=== PATIENT | female | born 1985 | race Caucasian/White ===

== ENCOUNTER 2022-10-28 15:28 | Outpatient (RCR) | payer OTHER, SELFPAY | END 2023-01-26 23:59 | disposition home or self-care (01) | LOC: ANHLAB 15:28 | PROVIDERS: PCP Otolaryngology; Visit Provider Obstetrics & Gynecology | DX: O36.0130 Maternal care for anti-D [Rh] antibodies, third trimester, not applicable or unspecified (principal); Z3A.00 Weeks of gestation of pregnancy not specified | CPT/HCPCS: 36415; 85461; 86850; 86900; 86901 ==

== ENCOUNTER → 2023-01-03 07:54 | Outpatient (CLI) | payer MEDICAID, SELFPAY ==
--- NOTE | ~2023-01-03 | US_ITS ---
EXAMINATION: US abdomen complete DATE: 01/03/2023 08:17 INDICATION: Abdominal pain. TECHNIQUE: Multiple grayscale and Doppler ultrasound images of the abdomen were obtained. COMPARISON: CT abdomen and pelvis 02/23/2018 FINDINGS: Abdominal aorta is normal in caliber. Inferior vena cava is normal. The visualized portions of the head, body, and tail of the pancreas are normal. The liver is normal without focal lesion. Th ere is normal flow in main portal vein. The gallbladder is normal in size. No gallstones or gallbladd er wall thickening. There is no sonographic Mckeon sign. The common duct is normal and measures 2 mm. The kidneys are normal in size. The spleen is normal in size. IMPRESSION: 1. Normal complete abdomen ultrasound. Reviewed, dictated and finalized at location A.
== END ==
PROVIDERS: Visit Provider Advanced Practice Midwife
DX: R10.9 Unspecified abdominal pain (principal)
CPT/HCPCS: 76700

== ENCOUNTER 2023-01-31 08:45 | Outpatient (RCR) | payer MEDICAID, SELFPAY ==
--- NOTE | 2022-11-28 13:35 | PTOPEVAL1 ---
Assessment and note entered by Luli Hinojosa, PT Evaluation Information Assessment Status Evaluation Diagnosis sciatica with Onset Nov 13, 2022 Subjective Information gradual increase in back pain; is 10 weeks - first ; recently completed moving; chronic pain, intermittent due to scoliosis; no trauma or injury to back; have been trying to do some stretches; Reported Pain Level Pain Score Self Report Additional Pain Score Comments pain range of 5-10/10; sharp pain at times, aching constant; pull and tight in low back and R buttock; intermittent radicular into R LE to toes increase pain with movement of her body; decrease pain with stretching, change position; tylenol barely touches the pain; heat pad not really help educated on use of ice PRN; reported tolerances: sit 5-10 min; standing/ walking 5-10 min; Oswestry self assessment functional score of 62% limitation in activity level; Assessment PT Clinical Summary Tish has the diagnosis of lumbago, sciatica R with . Radicular pain is intermittent, to Foot/toes. She has a history of scoliosis and intermittent back pain. Self assessment Oswestry score of 62% limitation in activity level, with decreased sit, stand, walk and sleep tolerances. And all movements hurt her back. With the evaluation: standing trunk extension more pain than flexion; poor standing position of her thoracic-lumbar spine due to scoliosis; tenderness over R > L sacrum and lumbar areas; the flexibility of her trunk and hips are WNL, but increase pain. Skilled PT services are indicated for manual therapy and taping to decrease pain; therapeutic exercises to stretch and strengthen her trunk and stabilize sacrum; education for home exercises and pain control. Plan of Care Interventions Hot Pack/Cold Pack,Manual Therapy,Patient/ Caregiver Education,Therapeutic Activities, Therapeutic Exercise,Other Other Interventions taping PT Services Indicated Yes Treatment Frequency and 2x/wk for 4 weeks Duration These treatments will address the objective and functional deficits as def
--- NOTE | 2022-11-29 14:35 | PCPTNOTE ---
Patient called & cancelled scheduled appointment this date due to not feeling well.
--- NOTE | 2022-12-27 13:19 | PTOPPROG ---
Assessment and note entered by Luli Hinojosa, PT Evaluation Information Assessment Status Evaluation Diagnosis sciatica with Onset Nov 13, 2022 Subjective Information Tish reports: back is better, but not good; both hips still hurting, problems standing and putting leg into pants leg; therapy is helping- not sure what, but feels better after have therapy concerned about more issues as the progresses; have a sacral belt, but not tried it yet;feel like need more therapy; pain range in past week, 4-10/10; sharp, aching, both hips R>L- anterior, lateral and posterior hips and alot into lower back; no pain into R lower leg- hip only; walking/standing tolerance reported 20 min; decrease pain with position change; with walking R hip gives her trouble; Assessment PT Clinical Summary Tish has received 9 PT sessions. Compared to the initial evaluation: pain rating was the same at worst rating 10/10 and 1 less at low rating from 5 to 4/10; increased reported walking/standing tolerance from 10 to 20 minutes; no longer has pain with standing trunk extension, supine R and L hip flexion, IR or ER motions; hamstring stretch R and L does not increase back pain, but have tightness at 60'; Oswestry self assessment improved by 2%; She has been educated on posture/position and HEP. The goals were partially achieved. Continue PT treatment. Plan of Care Interventions Hot Pack/Cold Pack,Manual Therapy,Neuro Re- education,Therapeutic Activities,Therapeutic Exercise,Other Other Interventions taping PT Services Indicated Yes Treatment Frequency and 2x/wk for 5 weeks Duration These treatments will address the objective and functional deficits as defined above. The patient will be advanced safely and appropriately in order for the patient to progress towards his/her prior level of function. Additional exercises will be introduced and as well as a comprehensive home exercise program upon discharge, if needed, ?to ensure carryover of functional gains achieved in the clinic. This treatment plan has been reviewed and agreement upon by the patient.
--- NOTE | 2023-01-31 09:31 | PTOPDC ---
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 Compared to the last reevaluation, she has improved with: pain rating from 4-10/10 to 0-4/10; walking/stand tolerance from 20 minutes to 30-60 minutes; hamstring length with SLR R and L increased by 10'; increase strength of trunk and hips; Oswestry self assessment functional score from 60% to 30% limitation in activity level. continues to have tenderness & spasm over R mid- ITB She is indep with her home exercises. The goals were partially achieved. Discharge PT services, she is to continue with her home exercises. Plan of Care PT Services Indicated No
== END 2023-02-11 12:38 | disposition home or self-care (01) ==
LOC: ANHPT 08:45
PROVIDERS: PCP Otolaryngology; Visit Provider Advanced Practice Midwife
DX: M54.30 Sciatica, unspecified side (principal)
CPT/HCPCS: 97110; 97112; 97140; 97161; 97530

== ENCOUNTER 2023-03-13 20:38 | Emergency (ER) | payer MEDICAID, SELFPAY ==
[2023-03-13 20:40] VITALS: BP 101/52; PULSE 75; RESP 16; TEMP 36.9; O2SAT 100
--- NOTE | 2023-03-13 20:47 | ECG_ITS ---
Measurements Intervals [place] Rate: 76 P: 54 VA: 117 QRS: 51 QRSD: 69 T: 44 QT: 356 QTc: 400 Interpretive Statements SINUS RHYTHM WITH SHORT VA INTERVAL NORMAL ELECTROCARDIOGRAM NO PREVIOUS ECG AVAILABLE FOR COMPARISON Electronically Signed On 03-14-2023 13:20:44 CDT by [place] M.D.
[2023-03-13 21:06] LABS: Basophils Percent Auto 0.4 % (0.2-1.2); Eosinophils Absolute Auto 0.2 K/mm3 (0-0.3); Eosinophils Percent Auto 2.1 % (0-4.4); Hematocrit 33.2 % (37.0-47.0); Hemoglobin 11.2 g/dL (12.0-15.0); Immature Granulocyte Percent A 0.9 % (0-0.5); Lymphocytes Absolute Auto 1.95 K/mm3 (0.9-3.2); Lymphocytes Percent Auto 17.5 % (18.3-44.2); Mean Corpuscular HGB Conc 33.7 g/dl (32-36); Mean Corpuscular Hemoglobin 32.4 pg (26-34); Mean Platelet Volume 10.7 fl (7.4-10.4); Monocytes Absolute Auto 1.3 K/mm3 (0.1-0.6); Monocytes Percent Auto 11.6 % (2.6-8.5); Neutrophils Absolute Auto 7.6 K/mm3 (1.3-6.7); Neutrophils Percent Auto 67.5 % (45.5-73.1); Platelet Count Result 358 k/mm3 (150-375); Red Blood Count 3.46 M/mm3 (4.2-5.4); Red Cell Distribution Width 14.4 % (11.5-14.5); White Blood Count 11.2 K/mm3 (4.5-10.0)
[2023-03-13 21:15] LABS: Alanine Aminotransferase 17 U/L (6-35); Albumin Level 3.7 g/dL (3.5-5.1); Alkaline Phosphatase 66 U/L (38-126); Anion Gap 5 mmol/L (8-16); Aspartate Amino Transferase 23 U/L (14-36); Bilirubin,Total 0.2 mg/dL (0.2-1.3); Blood Urea Nitrogen 10 mg/dL (7-17); Calcium 8.2 mg/dL (8.4-10.2); Carbon Dioxide 23 mmol/L (22-30); Chloride 105 mmol/L (98-107); Estimated CRCL calculation 148 ml/min; Estimated Glomerular Filt Rate > 60; Glucose 88 mg/dL (65-110); Potassium 3.9 mmol/L (3.4-5.0); Sodium 133 mmol/L (137-145)
[2023-03-13 23:41] VITALS: BP 94/64; PULSE 76; RESP 16; O2SAT 100
[2023-03-13 23:46] VITALS: BP 93/69; PULSE 83; RESP 10; O2SAT 100
[2023-03-14] VITALS (12 sets, daily range): BP systolic 88–109; BP diastolic 60–84; PULSE 71–110; RESP 15–20; O2SAT 97–100
--- NOTE | 2023-03-14 00:42 | PC.NURSE ---
Pt is 26 weeks . Healthy so far. Pt reports one episode of vomiting last week. She reports intermittent dizziness over the past week but has gotten much worse last night. Dizziness seems to be random per pt but notices it's worse when she lays flat. Pt also c/o worsening acid reflux. She is alert and oriented x4. Speech is clear, pupils PEARRL. Gait is steady. She denies any pain.
[2023-03-14 01:17] LABS: Appearance Urine Cloudy (Clear); Bacteria Urine 3+ /hpf; Bilirubin Urine Negative (Negative); Blood Urine Negative (Negative); Color Urine Yellow (Yellow); Glucose Urine UA Negative (Negative); Ketones Urine Negative (Negative); Leukocyte Esterase Ur Trace LEU/UL (Negative); Need Manual Microscopic Reviewed; Nitrate Urine Negative (Negative); Protein Urine Negative (Negative); RBC Urine 0-2 /hpf (0-2); Specific Grav Ur 1.015 (1.001-1.035); Squamous Epithelial Cell Urine Occasional /hpf (Few); Urobilinogen Urine 0.2 mg/dL (<2.0); WBC Urine 21-50 /hpf; pH Urine 6.5 (5.0-9.0)
[2023-03-14] MEDS: SODIUM CHLORIDE 0.9% IV 1,000 ML 999 ML IV CONT (01:18)
[2023-03-14 01:20] LABS: Add Urine Microscopic? YES
[2023-03-14] MEDS: diphenhydrAMINE HCl INJ 50 MG/ML VIAL 25 MG IV PUSH (01:24)
[2023-03-14] MEDS: FAMOTIDINE 20 MG/2 ML VIAL IV PUSH (01:24)
[2023-03-14] MEDS: METOCLOPRAMIDE HCL INJ 10 MG/2 ML VIAL IV PUSH (01:24)
[2023-03-14 01:47] LABS: Magnesium 1.9 mg/dL (1.6-2.3)
[2023-03-14] MEDS: MAGNESIUM SULF 1 GM/D5W 100 ML 1 GM/100 ML BAG IVPB (02:20)
--- NOTE | 2023-03-14 03:16 | ED.GENADULT ---
HPI - General Adult General Chief complaint: Dizziness Stated complaint: dizzy Time Seen by Provider: 03/14/23 00:11 History of Present Illness HPI narrative: Patient 37-year-old female who presents the emergency department with chief complaint of lightheadedness patient reports she is currently and has noticed that she has felt lightheaded has a headache and has felt generally unwell today. The patient reports that she has had no chest pain or shortness of breath reports that she had no vaginal bleeding or vaginal discharge. Related Data Allergies Allergy/AdvReac Type Severity Reaction Status Date / Time CILANTRO Allergy Intermediate ITCHY Uncoded 12/29/15 00:36 THROAT/COUGH Review of Systems Review of Systems: A 10 system review of systems was completed on the patient and is negative except for what is stated in the HPI. Nursing and ancillary documentation was reviewed. Exam Narrative: GENERAL: Well-appearing, well-nourished, and in no acute distress. HEAD: Normocephalic, atraumatic. EYES: PERRLA and EOMI. ENT: Nares clear, no rhinorrhea or epistaxis. Mucous membranes moist. NECK: Supple. CHEST: Clear to auscultation. No respiratory distress. HEART: Regular rate and rhythm. No murmur heard. Normal peripheral pulses. ABDOMEN: Soft, nontender, nondistended, normal active bowel sounds. EXTREMITIES: Normal range of motion. No edema. SKIN: Warm, dry, no rash. NEURO: No focal deficits. Alert and oriented x3. PSYCH: Normal mood and affect. Course Vital Signs Vital signs: Vital Signs Temperature 36.9 C 03/13/23 20:40 Pulse Rate 75 03/13/23 20:40 Respiratory Rate 16 03/13/23 20:40 Blood Pressure 101/52 L 03/13/23 20:40 Pulse Oximetry 100 03/13/23 20:40 Oxygen Delivery Room Air 03/13/23 20:40 Temperature 36.9 C 03/13/23 20:40 Pulse Rate 75 03/14/23 02:01 Respiratory Rate 16 03/14/23 02:01 Blood Pressure 93/70 L 03/14/23 02:01 Pulse Oximetry 100 03/14/23 02:01 Oxygen Delivery Room Air 03/13/23 20:40 Medical Decision Making MDM Narrative Medical decision making narrative: Differential diagnosis includes dehydration, gastroesophageal reflux disease UTI, electrolyte abnormality, Oratory studies were obtained on the patient which showed a normal CBC with a white count of 11.2 and hemoglobin 11.2 electrolytes showed a sodium of 133 potassium of 3.9 creatinine 0.4 magnesium was 1.9. Liver enzymes are within normal limits urinalysis showed trace leukocyte esterase 21-50 white blood cells and 3+ bacteria Patient was started on Keflex for the UTI and also will be given a prescription for Pepcid. The patient received IV fluids antiemetics Pepcid and received a dose of magnesium in the emergency department Patient is follow-up with her primary OB in the next week Vital Signs Vital Signs: Vital Signs Temperature 36.9 C 03/13/23 20:40 Pulse Rate 75 03/13/23 20:40 Respiratory Rate 16 03/13/23 20:40 Blood Pressure 101/52 L 03/13/23 20:40 Pulse Oximetry 100 03/13/23 20:40 Oxygen Delivery Room Air 03/13/23 20:40 Temperature 36.9 C 03/13/23 20:40 Pulse Rate 75 03/14/23 02:01 Respiratory Rate 16 03/14/23 02:01 Blood Pressure 93/70 L 03/14/23 02:01 Pulse Oximetry 100 03/14/23 02:01 Oxygen Delivery Room Air 03/13/23 20:40 Lab Data 03/13/23 20:56 03/13/23 20:56 Labs: Lab Results 03/13/23 03/14/23 Range/Units 20:56 00:48 WBC 11.2 H (4.5-10.0) K/mm3 RBC 3.46 L (4.2-5.4) M/mm3 Hgb 11.2 L (12.0-15.0) g/dL Hct 33.2 L (37.0-47.0) % MCV 96.0 (80-100) fl MCH 32.4 (26-34) pg MCHC 33.7 (32-36) g/dl RDW 14.4 (11.5-14.5) % Plt Count 358 (150-375) k/mm3 MPV 10.7 H (7.4-10.4) fl Immature Gran % (Auto) 0.9 H (0-0.5) % Neut % (Auto) 67.5 (45.5-73.1) % Lymph % (Auto) 17.5 L (18.3-44.2) % [place] % (Auto) 11.6 H (2.6-8.5) % Eos
== END 2023-03-14 03:34 | disposition home or self-care (01) ==
PROVIDERS: Emergency Provider Emergency Medicine
DX: O23.42 Unspecified infection of urinary tract in pregnancy, second trimester (principal); N39.0 Urinary tract infection, site not specified; O99.282 Endocrine, nutritional and metabolic diseases complicating pregnancy, second trimester; E83.42 Hypomagnesemia; O99.612 Diseases of the digestive system complicating pregnancy, second trimester; K21.9 Gastro-esophageal reflux disease without esophagitis; O26.892 Other specified pregnancy related conditions, second trimester; R42 Dizziness and giddiness; Z3A.26 26 weeks gestation of pregnancy
CPT/HCPCS: 36415; 80053; 81001; 81025; 83735; 85025; 87086; 93005; 96361; 96365; 96375; 99284; J1200; J2765; J3475; J7030

== ENCOUNTER 2023-04-11 22:15 | Observation (INO) | payer OTHER, SELFPAY ==
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
[2023-04-11 22:40] VITALS: BP 103/68; PULSE 79
[2023-04-11 23:27] VITALS: BMI 22.9
--- NOTE | 2023-04-11 23:27 | OBADM ---
This patient, Tish Avalos, admitted to the OB room OB Post 116 for observation. Patient/family oriented to hospital policies and general routines including ID bracelet, bed and alarms, visiting hours, pain management, procedures, bathroom and other care routines, personal items, smoking policy, room service/diet, and visiting hours. Patient/Family are encouraged to report perceived risks to care and to ask questions if they do not understand what they are told or what they should do.
[2023-04-11 23:34] LABS: Appearance Urine Clear (Clear); Bilirubin Urine Negative (Negative); Blood Urine Negative (Negative); Color Urine Yellow (Yellow); Glucose Urine UA Negative (Negative); Ketones Urine Negative (Negative); Leukocyte Esterase Ur Negative LEU/UL (Negative); Nitrate Urine Negative (Negative); Protein Urine Negative (Negative); Specific Grav Ur 1.007 (1.001-1.035); Urobilinogen Urine 0.2 mg/dL (<2.0)
[2023-04-11 23:57] LABS: Add Urine Microscopic? NO
--- NOTE | 2023-04-12 | PC.NURSE ---
Armin NEWSOME called via principal technical writer and is informed of pt arrival with request to contact her instead of Dr Jackson who is concert singer. Pt accepts patient and is given report on pt arrival and pain, CAT1 tracing with slight uterine irritability that has calmed down, and UA results negative. Orders to discharge pt home with flexeril 10mg PO.
[2023-04-12] MEDS: CYCLOBENZAPRINE HCL 10 MG TABLET PO (00:20)
--- NOTE | 2023-05-08 08:33 | P.PNOB_ITS ---
OB - Triage/Final Diagnosis Visit Information Comments/Additional reasons for admission: I have assessed the risk for this patient, Tish Avalos, and determined that she would benefit from observation care. Evaluation Laboratory results: Laboratory Tests 04/11/23 23:20 Urine Color Yellow Urine Appearance Clear Urine pH 6.0 Ur Specific [place] 1.007 Urine Protein Negative Urine Glucose (UA) Negative Urine Ketones Negative Ur Blood (Man) Negative Urine Nitrate Negative Urine Bilirubin Negative Urine Urobilinogen 0.2 Leukocyte Esterase Rfl Negative Final Diagnosis (1) Edema: Code(s): R60.9 - Edema, unspecified Status: Acute
--- NOTE | 2023-05-08 08:36 | PM.OBTRLD ---
OB - Triage/Final Diagnosis Visit Information Comments/Additional reasons for admission: I have assessed the risk for this patient, Tish Avalos, and determined that she would benefit from observation care. Evaluation Laboratory results: Laboratory Tests 04/11/23 23:20 Urine Color Yellow Urine Appearance Clear Urine pH 6.0 Ur Specific [place] 1.007 Urine Protein Negative Urine Glucose (UA) Negative Urine Ketones Negative Ur Blood (Man) Negative Urine Nitrate Negative Urine Bilirubin Negative Urine Urobilinogen 0.2 Leukocyte Esterase Rfl Negative Final Diagnosis (1) Reflux gastritis: Code(s): K29.60 - Other gastritis without bleeding Status: Acute
== END 2023-04-12 00:25 | disposition home or self-care (01) ==
PROVIDERS: Admitting Provider Obstetrics & Gynecology; Visit Provider Obstetrics & Gynecology
DX: O99.613 Diseases of the digestive system complicating pregnancy, third trimester (principal); K29.60 Other gastritis without bleeding; O12.03 Gestational edema, third trimester; Z3A.36 36 weeks gestation of pregnancy
CPT/HCPCS: 81003; A9270; G0378; G0379

== ENCOUNTER 2023-04-14 16:39 | Observation (INO) | payer OTHER, SELFPAY ==
--- NOTE | ~2023-04-14 | US_ITS ---
EXAMINATION: US venous doppler LE RT DATE: 04/14/2023 17:27 INDICATION: right leg pain and swelling . TECHNIQUE: Grayscale images without and with compression and Doppler images of the right lower extrem ity veins were obtained. COMPARISON: None FINDINGS: The right common femoral vein, profunda (deep) femoral vein, femoral vein, popliteal vein, peroneal v ein, posterior tibial veins, gastrocnemius vein, and greater saphenous vein are patent. IMPRESSION: 1. Patent right lower extremity veins. No evidence of deep venous thrombosis. Reviewed, dictated and finalized at location K.
--- NOTE | 2023-04-14 16:39 | OBADM ---
This patient, Tish Avalos, admitted to the OB room OB Post 115 for observation. Patient/family oriented to hospital policies and general routines including ID bracelet, bed and alarms, visiting hours, pain management, procedures, bathroom and other care routines, personal items, smoking policy, room service/diet, and visiting hours. Patient/Family are encouraged to report perceived risks to care and to ask questions if they do not understand what they are told or what they should do.
[2023-04-14 16:54] VITALS: BP 89/57; PULSE 74
[2023-04-14 17:00] VITALS: BP 95/54; PULSE 75
[2023-04-14 17:06] VITALS: BMI 22.9
--- NOTE | 2023-05-08 10:08 | PM.OBTRLD ---
OB - Triage/Final Diagnosis Visit Information Comments/Additional reasons for admission: I have assessed the risk for this patient, Tish Avalos, and determined that she would benefit from observation care. Final Diagnosis (1) Reflux gastritis: Code(s): K29.60 - Other gastritis without bleeding Status: Acute
== END 2023-04-14 19:29 | disposition home or self-care (01) ==
PROVIDERS: Admitting Provider Obstetrics & Gynecology; Visit Provider Obstetrics & Gynecology
DX: O99.613 Diseases of the digestive system complicating pregnancy, third trimester (principal); K29.60 Other gastritis without bleeding; O12.03 Gestational edema, third trimester; O26.893 Other specified pregnancy related conditions, third trimester; M79.604 Pain in right leg; Z3A.30 30 weeks gestation of pregnancy
CPT/HCPCS: 59025; 93971; G0378; G0379

== ENCOUNTER 2023-04-23 11:57 | Outpatient (CLI) | payer OTHER, SELFPAY ==
[2023-04-23] VITALS (36 sets, daily range): BP systolic 94–100; BP diastolic 59–68; PULSE 73–100; O2SAT 82–100
[2023-04-23 13:21] LABS: Basophils Absolute Auto 0.1 K/mm3 (0.0-0.1); Basophils Percent Auto 0.5 % (0.2-1.2); Eosinophils Absolute Auto 0.2 K/mm3 (0-0.3); Eosinophils Percent Auto 1.6 % (0-4.4); Hematocrit 33.1 % (37.0-47.0); Hemoglobin 10.9 g/dL (12.0-15.0); Immature Granulocyte Absolute 0.17 K/mm3 (0.00-0.031); Immature Granulocyte Percent A 1.5 % (0-0.5); Lymphocytes Absolute Auto 1.49 K/mm3 (0.9-3.2); Lymphocytes Percent Auto 13.3 % (18.3-44.2); Mean Corpuscular HGB Conc 32.9 g/dl (32-36); Mean Corpuscular Volume 97.1 fl (80-100); Mean Platelet Volume 10.8 fl (7.4-10.4); Monocytes Absolute Auto 1.4 K/mm3 (0.1-0.6); Monocytes Percent Auto 12.2 % (2.6-8.5); Neutrophils Absolute Auto 7.9 K/mm3 (1.3-6.7); Neutrophils Percent Auto 70.9 % (45.5-73.1); Platelet Count Result 301 k/mm3 (150-375); Red Blood Count 3.41 M/mm3 (4.2-5.4); Red Cell Distribution Width 14.5 % (11.5-14.5); White Blood Count 11.2 K/mm3 (4.5-10.0)
[2023-04-23 13:30] LABS: Alanine Aminotransferase 16 U/L (6-35); Albumin Level 3.6 g/dL (3.5-5.1); Alkaline Phosphatase 77 U/L (38-126); Anion Gap 9 mmol/L (8-16); Aspartate Amino Transferase 21 U/L (14-36); Bilirubin,Total 0.3 mg/dL (0.2-1.3); Blood Urea Nitrogen 6 mg/dL (7-17); Calcium 8.7 mg/dL (8.4-10.2); Carbon Dioxide 23 mmol/L (22-30); Chloride 100 mmol/L (98-107); Estimated Glomerular Filt Rate > 60; Glucose 93 mg/dL (65-110); Potassium 3.9 mmol/L (3.4-5.0); Sodium 132 mmol/L (137-145)
[2023-04-23 13:36] LABS: Appearance Urine Clear (Clear); Bilirubin Urine Negative (Negative); Blood Urine Negative (Negative); Color Urine Yellow (Yellow); Glucose Urine UA Negative (Negative); Ketones Urine Negative (Negative); Leukocyte Esterase Ur Negative LEU/UL (Negative); Nitrate Urine Negative (Negative); Protein Urine Negative (Negative); Specific Grav Ur 1.008 (1.001-1.035); Urobilinogen Urine 0.2 mg/dL (<2.0); pH Urine 7.5 (5.0-9.0)
[2023-04-23 13:39] LABS: Add Urine Microscopic? NO
--- NOTE | 2023-04-23 17:12 | PC.NURSE ---
1213--Pt presents from OB office in wheelchair with dizziness and unsteadiness transported by nurse from OB office.
--- NOTE | 2023-04-23 17:17 | PC.NURSE ---
1300--Labs drawn and sent. Pt stable and sipping on water.
== END 2023-04-23 15:15 | disposition home or self-care (01) ==
LOC: ANHOBOP 12:02 → ANHOBPP 12:03
PROVIDERS: Visit Provider Advanced Practice Midwife
DX: R42 Dizziness and giddiness (principal)
CPT/HCPCS: 36415; 59025; 80053; 81003; 85025; 99199

== ENCOUNTER 2023-04-29 17:20 | Observation (INO) | payer OTHER, SELFPAY ==
[2023-04-29] VITALS (29 sets, daily range): BP systolic 93–104; BP diastolic 55–71; PULSE 32–94; O2SAT 80–100; BMI 22.9
--- NOTE | ~2023-04-29 | US_ITS ---
EXAMINATION: US right upper quadrant DATE: 04/29/2023 22:38 INDICATION: extreme right upper abdominal quandrant pain TECHNIQUE: Multiple grayscale and Doppler ultrasound images of the right upper quadrant were obtained . COMPARISON: 01/03/2023. FINDINGS: The pancreas was not visualized. The liver is normal with normal echogenicity and echotextu re. No surface nodularity. Normal hepatopetal flow in the main portal vein. The gallbladder is partia lly contracted but otherwise normal with no abnormal wall thickening, pericholecystic fluid or stones . The common bile duct measures 4 mm. There was no sonographic Mckeon sign. Normal IVC. Right kidney measures 10.6 x 5.6 x 5.8. Moderate pelviectasis, caliectasis, and ureterectasis. The patient request ed evaluation of the superficial upper midline abdomen just inferior to the xiphoid which revealed no sonographic abnormality. IMPRESSION: Moderate right hydronephrosis. Reviewed, dictated and finalized at location K.
--- NOTE | 2023-04-29 17:20 | PC.NURSE ---
Called Dr. Mccurdy with pt status. Informed of dizziness, weakness, upper right abdominal pain with tenderness. Orders received.
--- NOTE | 2023-04-29 17:20 | OBADM ---
This patient, Tish Avalos, admitted to the OB room OB Post 117 for observation. Patient/family oriented to hospital policies and general routines including ID bracelet, bed and alarms, visiting hours, pain management, procedures, bathroom and other care routines, personal items, smoking policy, room service/diet, and visiting hours. Patient/Family are encouraged to report perceived risks to care and to ask questions if they do not understand what they are told or what they should do.
[2023-04-29] MEDS: SODIUM CHLORIDE 0.9% IV 1,000 ML 200 ML IV CONT (17:50)
[2023-04-29 17:51] LABS: Basophils Absolute Auto 0.1 K/mm3 (0.0-0.1); Basophils Percent Auto 0.5 % (0.2-1.2); Eosinophils Absolute Auto 0.2 K/mm3 (0-0.3); Eosinophils Percent Auto 1.7 % (0-4.4); Hematocrit 33.9 % (37.0-47.0); Hemoglobin 11.4 g/dL (12.0-15.0); Immature Granulocyte Absolute 0.16 K/mm3 (0.00-0.031); Immature Granulocyte Percent A 1.5 % (0-0.5); Lymphocytes Absolute Auto 1.96 K/mm3 (0.9-3.2); Lymphocytes Percent Auto 17.9 % (18.3-44.2); Mean Corpuscular HGB Conc 33.6 g/dl (32-36); Mean Corpuscular Hemoglobin 31.9 pg (26-34); Mean Platelet Volume 10.8 fl (7.4-10.4); Monocytes Absolute Auto 1.4 K/mm3 (0.1-0.6); Monocytes Percent Auto 12.8 % (2.6-8.5); Neutrophils Absolute Auto 7.2 K/mm3 (1.3-6.7); Neutrophils Percent Auto 65.6 % (45.5-73.1); Platelet Count Result 301 k/mm3 (150-375); Red Blood Count 3.57 M/mm3 (4.2-5.4); Red Cell Distribution Width 14.2 % (11.5-14.5); White Blood Count 10.9 K/mm3 (4.5-10.0)
[2023-04-29 18:03] LABS: Alanine Aminotransferase 21 U/L (6-35); Albumin Level 3.6 g/dL (3.5-5.1); Alkaline Phosphatase 83 U/L (38-126); Anion Gap 3 mmol/L (8-16); Aspartate Amino Transferase 29 U/L (14-36); Bilirubin,Total 0.2 mg/dL (0.2-1.3); Blood Urea Nitrogen 11 mg/dL (7-17); Calcium 8.6 mg/dL (8.4-10.2); Carbon Dioxide 23 mmol/L (22-30); Chloride 102 mmol/L (98-107); Estimated Glomerular Filt Rate > 60; Glucose 84 mg/dL (65-110); Potassium 3.9 mmol/L (3.4-5.0); Sodium 128 mmol/L (137-145)
[2023-04-29 18:55] LABS: Transferrin 350 mg/dL (206-381)
[2023-04-29 18:57] LABS: Iron 89 ug/dL (37-170)
[2023-04-29 19:07] LABS: Percent Iron Saturation 17 % (20-50)
[2023-04-29 19:35] LABS: Ferritin 7.19 ng/mL (6.24-137)
--- NOTE | 2023-04-29 19:57 | PC.NURSE ---
Dr. Mccurdy called the unit for an update on this patient. RN reported latest lab results as well as pts reported sharp mid upper abdominal pain. MD believes pain is muscular and does not wish to prescribe anything at this time. Orders received to complete administration of NS, provide pt with salty foods and redraw BMP at time of completion of NS as well as call with updated lab results.
--- NOTE | 2023-04-29 21:27 | PC.NURSE ---
asked by Primary RN to evaluate patient. upon entering pt room, pt was crying in bed in position holding right upper quadrant of abdomen. pt states she is having severe pain and rates it beyond a 10 on a pain scale of 0-10. states it is a sharp pain and not going away. pt states this pain started this intense at approximately 2108 after eating. pt refusing to let me palpate area in pain. pt states it gets worse with movement but still happens when baby is not moving. states these are not contractions. no vaginal bleeding. requesting doctor come evaluate her. Dr. Mccurdy notified of pt status. orders obtained.
[2023-04-29] MEDS: ACETAMINOPHEN 500 MG TABLET 1000 MG PO (21:38)
--- NOTE | 2023-04-29 22:03 | PC.NURSE ---
2150: pt off unit to go to ultrasound via wheelchair
[2023-04-29 22:07] LABS: Amylase 75 U/L (30-110); Anion Gap 4 mmol/L (8-16); Bilirubin,Total 0.1 mg/dL (0.2-1.3); Blood Urea Nitrogen 11 mg/dL (7-17); Calcium 8.1 mg/dL (8.4-10.2); Carbon Dioxide 24 mmol/L (22-30); Chloride 102 mmol/L (98-107); Estimated CRCL calculation 121 ml/min; Estimated Glomerular Filt Rate > 60; Glucose 92 mg/dL (65-110); Lipase 118 U/L (23-300); Potassium 3.4 mmol/L (3.4-5.0); Sodium 130 mmol/L (137-145)
--- NOTE | 2023-04-29 23:15 | PC.NURSE ---
Dr. Mccurdy notified of pt status, orders obtained.
[2023-04-29] MEDS: MORPHINE SULFATE INJ (*CRX) 10 MG/ML AMP 5 MG IV PUSH (23:23)
[2023-04-30] VITALS (16 sets, daily range): BP systolic 84; BP diastolic 52; PULSE 64–78; RESP 16; TEMP 36.3; O2SAT 98–100
[2023-04-30] MEDS: SODIUM CHLORIDE 0.9% IV 1,000 ML 125 ML IV CONT (05:45)
--- NOTE | 2023-04-30 07:37 | PC.NURSE ---
Dr. Mccurdy is in seeing pt. Discussed with pt that she feels her pain is either from musculoskeletal or reflux and that all the bad reasons for the pain have been ruled out. Discussed low sodium level and to increase salt intake in diet to help with her BP and fluid levels and therefore dizziness will improve. Discussed pt to increase her reflux meds to BID and will add a pain medicine that she is only to take at night when she is in bed as it could also increase her dizziness and risk of falling. Pt verbalizes understanding. MD will check Na level with this lab redraw and if improving will discharge pt to home.
[2023-04-30 08:02] LABS: Anion Gap 4 mmol/L (8-16); Blood Urea Nitrogen 10 mg/dL (7-17); Calcium 8.1 mg/dL (8.4-10.2); Carbon Dioxide 25 mmol/L (22-30); Chloride 103 mmol/L (98-107); Estimated CRCL calculation 121 ml/min; Estimated Glomerular Filt Rate > 60; Glucose 80 mg/dL (65-110); Potassium 4.1 mmol/L (3.4-5.0); Sodium 132 mmol/L (137-145)
--- NOTE | 2023-04-30 08:44 | PC.NURSE ---
Dr. Mccurdy at [facility] and reviewed lab results. Informed MD that pt would like to have her IV fluids faster while she is here. Order received to increase IV fluids to 250 ml/hr for this bag before she goes home.
--- NOTE | 2023-04-30 08:49 | PM.IMHP ---
H&P: HPI History of Present Illness Date/Time: 04/30/23 08:49 Chief Complaint: dizziness and upper abdominal pain Narrative: Tish is a 37yo G1 at 33w who presented with dizziness, which is a frequent presenting complaint of hers, and of upper abdominal pain. She has been admitted almost once per week with dizziness and presyncope and syncope. Her BP runs low, workups have been mostly normal, though sodium slightly low last admission and significantly low on this admission. The pain was more right sided at first and quickly became middle upper abdomen. It is worse with changing positions and if she lays on right side. She had normal LFTs, amylase, lipase, and RUQ US. It was worse after eating last night. Received morphine and slept all night per RN< though pt says she was up every 30 min. Does have GERD< on PPI< still wakes up at night from acid. Review of Systems Review of Systems: All systems reviewed & are unremarkable except as noted in HPI and below [facility] Social History Social History Smoking status: Never smoker Meds Home Medications and Allergies Home Medications Medication Instructions Recorded Confirmed Type pantoprazole 40 mg tablet,delayed 40 mg PO QAM 04/16/23 04/30/23 History release buspirone 10 mg tablet 10 mg PO DAILY 04/30/23 04/30/23 History vit no.95-ferrous 1 tablet PO DAILY 04/30/23 04/30/23 History fumarate 28 mg-folic acid 800 mcg tablet () sertraline 25 mg tablet 50 mg PO DAILY 04/30/23 04/30/23 History Allergies Allergy/AdvReac Type Severity Reaction Status Date / Time CILANTRO Allergy Intermediate ITCHY Uncoded 04/16/23 15:07 THROAT/COUGH Vital Signs Vital Signs - 24 hr 04/29/23 17:11 04/29/23 17:15 04/29/23 17:30 Pulse Rate 82 84 78 Blood Pressure 97/59 L 100/60 94/63 L Pulse Oximetry Oxygen Delivery 04/29/23 17:45 04/29/23 18:00 04/29/23 18:15 Pulse Rate 78 79 75 Blood Pressure 94/61 L 94/59 L 96/58 L Pulse Oximetry Oxygen Delivery 04/29/23 18:30 04/29/23 18:45 04/29/23 19:00 Pulse Rate 80 80 83 Blood Pressure 93/61 L 98/66 L 96/61 L Pulse Oximetry Oxygen Delivery 04/29/23 19:15 04/29/23 19:30 04/29/23 19:45 Pulse Rate 81 76 90 Blood Pressure 98/63 L 100/62 104/71 Pulse Oximetry Oxygen Delivery 04/29/23 20:00 04/29/23 20:16 04/29/23 20:30 Pulse Rate 86 88 93 Blood Pressure 98/63 L 101/55 L 104/66 Pulse Oximetry Oxygen Delivery 04/29/23 20:45 04/29/23 21:15 04/29/23 21:30 Pulse Rate 82 86 78 Blood Pressure 100/63 96/69 L 95/56 L Pulse Oximetry Oxygen Delivery 04/29/23 22:46 04/29/23 23:00 04/29/23 23:16 Pulse Rate 77 75 94 Blood Pressure 101/66 98/58 L 101/70 Pulse Oximetry Oxygen Delivery 04/29/23 23:24 04/29/23 23:29 04/29/23 23:34 Pulse Rate Blood Pressure Pulse Oximetry 98 100 99 Oxygen Delivery 04/29/23 23:39 04/29/23 23:44 04/29/23 23:49 Pulse Rate Blood Pressure Pulse Oximetry 98 98 99 Oxygen Delivery 04/29/23 23:54 04/29/23 23:57 04/30/23 00:02 Pulse Rate Blood Pressure Pulse Oximetry 98 80 L 99 Oxygen Delivery 04/30/23 00:07 04/30/23 00:12 04/30/23 00:17 Pulse Rate Blood Pressure Pulse Oximetry 99 98 99 Oxygen Delivery 04/30/23 00:22 04/30/23 00:27 04/30/23 00:32 Pulse Rate Blood Pressure Pulse Oximetry 99 98 98 Oxygen Delivery 04/30/23 00:37 04/30/23 00:42 04/30/23 00:47 Pulse Rate Blood Pressure Pulse Oximetry 98 98 98 Oxygen Delivery 04/30/23 00:52 04/30/23 00:57 04/30/23 01:02 Pulse Rate Blood Pressure Pulse Oximetry 98 98 98 Oxygen Delivery 04/30/23 01:07 04/30/23 07:37 04/30/23 07:42 Pulse Rate 71 Blood Pressure 84/52 L Pulse Oximetry 99 98 100 Oxygen Delivery 04/29/23 18:34 Pulse Rate Blood Pressure Pulse Oximetry Oxygen Delivery Room
--- NOTE | 2023-04-30 11:17 | PC.NURSE ---
Reviewed discharge instructions with pt. She is waiting for a ride. Will continue this bag of IV fluids until ride arrives.
--- NOTE | 2023-05-02 07:40 | PM.OBTRLD ---
OB - Triage/Final Diagnosis Visit Information Comments/Additional reasons for admission: I have assessed the risk for this patient, Tish Avalos, and determined that she would benefit from observation care. Evaluation Laboratory results: Laboratory Tests 04/29/23 04/29/23 04/30/23 17:35 21:40 07:41 WBC 10.9 H RBC 3.57 L Hgb 11.4 L Hct 33.9 L MCV 95.0 MCH 31.9 MCHC 33.6 RDW 14.2 Plt Count 301 MPV 10.8 H Immature Gran % (Auto) 1.5 H Neut % (Auto) 65.6 Lymph % (Auto) 17.9 L [place] % (Auto) 12.8 H Eos % (Auto) 1.7 Baso % (Auto) 0.5 Lymph # (Auto) 1.96 [place] # (Auto) 1.4 H Eos # (Auto) 0.2 Baso # (Auto) 0.1 Abs Immat Gran (auto) 0.16 H Absolute Neuts (auto) 7.2 H Absolute Nucleated RBC 0.0 Nucleated RBC % 0.0 Sodium 128 L 130 L 132 L Potassium 3.9 3.4 4.1 Chloride 102 102 103 Carbon Dioxide 23 24 25 Anion Gap 3 L 4 L 4 L BUN 11 D 11 10 Creatinine 0.50 L 0.50 L 0.50 L Estim Creat Clear Calc Not Reportable 121 121 Estimated GFR > 60 > 60 > 60 Glucose 84 92 80 Calcium 8.6 8.1 L 8.1 L Iron 89 TIBC 519 H % Saturation 17 L Transferrin 350 Ferritin 7.19 Total Bilirubin 0.2 0.1 L AST 29 ALT 21 Alkaline Phosphatase 83 Total Protein 7.0 Albumin 3.6 Amylase 75 Lipase 118 Vitamin B12 546.0 Final Diagnosis (1) Upper abdominal pain: Code(s): R10.10 - Upper abdominal pain, unspecified Status: Acute (2) Hyponatremia: Code(s): E87.1 - Hypo-osmolality and hyponatremia Status: Acute
== END 2023-04-30 14:53 | disposition home or self-care (01) ==
LOC: ANHOBOP 18:33 → ANHOBPP 04-30 09:01 → ANHLDR 05-01 07:47 → ANHOBPP 05-01 07:47
PROVIDERS: Admitting Provider Obstetrics & Gynecology; Visit Provider Obstetrics & Gynecology
DX: O26.893 Other specified pregnancy related conditions, third trimester (principal); R10.13 Epigastric pain; O99.283 Endocrine, nutritional and metabolic diseases complicating pregnancy, third trimester; E87.1 Hypo-osmolality and hyponatremia; O26.93 Pregnancy related conditions, unspecified, third trimester; R42 Dizziness and giddiness; Z3A.32 32 weeks gestation of pregnancy
CPT/HCPCS: 36415; 76705; 80048; 80053; 82150; 82247; 82607; 82728; 83540; 83550; 83690; 84112; 84466; 85025; 96361; 96374; A9270; G0378; G0379; J2270; J7030

== ENCOUNTER 2023-05-01 15:17 | Observation (INO) | payer OTHER, SELFPAY ==
[2023-05-01 15:00] VITALS: BP 103/62; PULSE 104
[2023-05-01 15:15] VITALS: BP 93/60; PULSE 78
[2023-05-01] MEDS: CYCLOBENZAPRINE HCL 10 MG TABLET PO (15:37)
[2023-05-01 15:39] VITALS: BMI 22.6
--- NOTE | 2023-05-01 15:42 | OBADM ---
This patient, Tish Avalos, admitted to the OB room OB Post 113 for observation. Patient/family oriented to hospital policies and general routines including ID bracelet, bed and alarms, visiting hours, pain management, procedures, bathroom and other care routines, personal items, smoking policy, room service/diet, and visiting hours. Patient/Family are encouraged to report perceived risks to care and to ask questions if they do not understand what they are told or what they should do.
[2023-05-01 16:00] VITALS: BP 94/61; PULSE 75
[2023-05-01 16:30] VITALS: BP 88/49; PULSE 74
[2023-05-01 17:00] VITALS: BP 99/66; PULSE 78
[2023-05-01 17:30] VITALS: BP 98/57; PULSE 83
--- NOTE | 2023-05-03 09:03 | PM.OBTRLD ---
OB - Triage/Final Diagnosis Visit Information Date of evaluation: 05/08/23 Reason for evaluation: other (back pain) Comments/Additional reasons for admission: I have assessed the risk for this patient, Tish Rich Avalos, and determined that she would benefit from observation care.
== END 2023-05-01 18:24 | disposition home or self-care (01) ==
PROVIDERS: Admitting Provider Obstetrics & Gynecology; Visit Provider Obstetrics & Gynecology
DX: O26.893 Other specified pregnancy related conditions, third trimester (principal); M54.9 Dorsalgia, unspecified; Z3A.33 33 weeks gestation of pregnancy
CPT/HCPCS: A9270; G0378; G0379

== ENCOUNTER 2023-05-24 18:57 | Observation (INO) | payer OTHER, SELFPAY ==
[2023-05-24 19:28] VITALS: BP 102/72; PULSE 88; O2SAT 97
[2023-05-24 19:33] VITALS: PULSE 86; O2SAT 97
[2023-05-24 19:38] VITALS: PULSE 90; O2SAT 97
[2023-05-24 19:43] VITALS: PULSE 86; O2SAT 98
[2023-05-24 20:10] VITALS: PULSE 155; O2SAT 76
[2023-05-24 20:12] VITALS: BMI 24.9
[2023-05-24] MEDS: LACTATED RINGERS 1,000 ML 125 ML IV CONT (20:28)
[2023-05-24] MEDS: ONDANSETRON INJ 4 MG/2 ML VIAL 8 MG IV PUSH (20:28)
[2023-05-24 20:47] LABS: Basophils Absolute Auto 0.1 K/mm3 (0.0-0.1); Basophils Percent Auto 0.5 % (0.2-1.2); Eosinophils Absolute Auto 0.2 K/mm3 (0-0.3); Eosinophils Percent Auto 1.7 % (0-4.4); Hematocrit 33.9 % (37.0-47.0); Hemoglobin 11.3 g/dL (12.0-15.0); Immature Granulocyte Absolute 0.14 K/mm3 (0.00-0.031); Immature Granulocyte Percent A 1.3 % (0-0.5); Mean Corpuscular HGB Conc 33.3 g/dl (32-36); Mean Corpuscular Hemoglobin 31.5 pg (26-34); Mean Corpuscular Volume 94.4 fl (80-100); Mean Platelet Volume 11.3 fl (7.4-10.4); Monocytes Absolute Auto 1.4 K/mm3 (0.1-0.6); Monocytes Percent Auto 13.4 % (2.6-8.5); Neutrophils Absolute Auto 6.6 K/mm3 (1.3-6.7); Neutrophils Percent Auto 63.1 % (45.5-73.1); Platelet Count Result 293 k/mm3 (150-375); Red Blood Count 3.59 M/mm3 (4.2-5.4); Red Cell Distribution Width 14.5 % (11.5-14.5); White Blood Count 10.5 K/mm3 (4.5-10.0)
[2023-05-24 21:00] LABS: Alanine Aminotransferase 14 U/L (6-35); Albumin Level 3.6 g/dL (3.5-5.1); Alkaline Phosphatase 104 U/L (38-126); Anion Gap 4 mmol/L (8-16); Aspartate Amino Transferase 23 U/L (14-36); Bilirubin,Total 0.2 mg/dL (0.2-1.3); Blood Urea Nitrogen 13 mg/dL (7-17); Calcium 8.5 mg/dL (8.4-10.2); Carbon Dioxide 22 mmol/L (22-30); Chloride 102 mmol/L (98-107); Estimated CRCL calculation 121 ml/min; Estimated Glomerular Filt Rate > 60; Glucose 87 mg/dL (65-110); Sodium 128 mmol/L (137-145)
--- NOTE | 2023-06-01 21:40 | PM.OBTRLD ---
OB - Triage/Final Diagnosis Visit Information Comments/Additional reasons for admission: I have assessed the risk for this patient, Tish Avalos, and determined that she would benefit from observation care. Evaluation Laboratory results: Laboratory Tests 05/24/23 20:42 WBC 10.5 H RBC 3.59 L Hgb 11.3 L Hct 33.9 L MCV 94.4 MCH 31.5 MCHC 33.3 RDW 14.5 Plt Count 293 MPV 11.3 H Immature Gran % (Auto) 1.3 H Neut % (Auto) 63.1 Lymph % (Auto) 20.0 [place] % (Auto) 13.4 H Eos % (Auto) 1.7 Baso % (Auto) 0.5 Lymph # (Auto) 2.10 [place] # (Auto) 1.4 H Eos # (Auto) 0.2 Baso # (Auto) 0.1 Abs Immat Gran (auto) 0.14 H Absolute Neuts (auto) 6.6 Absolute Nucleated RBC 0.0 Nucleated RBC % 0.0 Sodium 128 L Potassium 4.0 Chloride 102 Carbon Dioxide 22 Anion Gap 4 L BUN 13 Creatinine 0.50 L Estim Creat Clear Calc 121 Estimated GFR > 60 Glucose 87 Calcium 8.5 Total Bilirubin 0.2 AST 23 ALT 14 Alkaline Phosphatase 104 Total Protein 7.0 Albumin 3.6 Final Diagnosis (1) Dizziness: Code(s): R42 - Dizziness and giddiness Status: Acute
== END 2023-05-24 21:56 | disposition home or self-care (01) ==
LOC: ANHOBOP 19:05 → ANHOBPP 19:06 → ANHOBOP 21:00 → ANHOBPP 21:15
PROVIDERS: Admitting Provider Obstetrics & Gynecology; Visit Provider Obstetrics & Gynecology
DX: O26.93 Pregnancy related conditions, unspecified, third trimester (principal); R42 Dizziness and giddiness; Z3A.35 35 weeks gestation of pregnancy
CPT/HCPCS: 36415; 80053; 85025; 96374; G0378; G0379; J2405; J7120

== ENCOUNTER 2023-06-17 18:42 | Inpatient (IN) | payer OTHER, SELFPAY ==
[2023-06-17] VITALS (10 sets, daily range): BP systolic 82–111; BP diastolic 50–75; PULSE 70–81; RESP 16; TEMP 36.8; O2SAT 96–100; BMI 24.9
[2023-06-17 19:48] LABS: Basophils Absolute Auto 0.1 K/mm3 (0.0-0.1); Basophils Percent Auto 0.5 % (0.2-1.2); Eosinophils Absolute Auto 0.1 K/mm3 (0-0.3); Eosinophils Percent Auto 1.3 % (0-4.4); Hematocrit 34.3 % (37.0-47.0); Hemoglobin 11.6 g/dL (12.0-15.0); Immature Granulocyte Absolute 0.05 K/mm3 (0.00-0.031); Immature Granulocyte Percent A 0.5 % (0-0.5); Lymphocytes Absolute Auto 2.16 K/mm3 (0.9-3.2); Lymphocytes Percent Auto 22.5 % (18.3-44.2); Mean Corpuscular HGB Conc 33.8 g/dl (32-36); Mean Corpuscular Hemoglobin 31.5 pg (26-34); Mean Corpuscular Volume 93.2 fl (80-100); Monocytes Absolute Auto 1.1 K/mm3 (0.1-0.6); Monocytes Percent Auto 11.8 % (2.6-8.5); Neutrophils Absolute Auto 6.1 K/mm3 (1.3-6.7); Neutrophils Percent Auto 63.4 % (45.5-73.1); Platelet Count Result 259 k/mm3 (150-375); Red Blood Count 3.68 M/mm3 (4.2-5.4); Red Cell Distribution Width 14.6 % (11.5-14.5); White Blood Count 9.6 K/mm3 (4.5-10.0)
[2023-06-17] MEDS: DINOPROSTONE 10 MG VAG INSERT VAGINAL (19:56)
--- NOTE | 2023-06-17 20:22 | WPDANESEPPF ---
Anes - Initial Pre Proc Eval Procedure: Labor Epidural Date/Time: 06/17/23 20:22 Surgeon: Brittnee Sarmiento CNM Pre Op Diagnosis: Labor pain Pre Op Diagnosis: IOL Patient Data Age: 37 Gender: F Height: 1.68 m Weight: 70 kg Last Vital Signs Pulse 73 06/17/23 19:45 Resp 16 06/17/23 08:30 BP 90/56 L 06/17/23 19:45 Pulse Ox 99 06/17/23 19:36 O2 Del Method Room Air 06/17/23 08:30 Allergies Allergy/AdvReac Type Severity Reaction Status Date / Time CILANTRO Allergy Intermediate ITCHY Uncoded 06/11/23 15:41 THROAT/COUGH Home Medications Medication Instructions Recorded Confirmed Type buspirone 10 mg tablet 10 mg PO DAILY 04/30/23 06/11/23 History pantoprazole 40 mg tablet,delayed 40 mg PO BID #60 tabs 04/30/23 06/11/23 Rx release vit no.95-ferrous 1 tablet PO DAILY 04/30/23 06/11/23 History fumarate 28 mg-folic acid 800 mcg tablet () sertraline 25 mg tablet 50 mg PO DAILY 04/30/23 06/11/23 History Laboratory Tests 06/17/23 06/17/23 06/17/23 19:05 19:06 19:07 WBC 9.6 K/mm3 (4.5-10.0) RBC 3.68 L M/mm3 (4.2-5.4) Hgb 11.6 L g/dL (12.0-15.0) Hct 34.3 L % (37.0-47.0) MCV 93.2 fl (80-100) MCH 31.5 pg (26-34) MCHC 33.8 g/dl (32-36) RDW 14.6 H % (11.5-14.5) Plt Count 259 k/mm3 (150-375) MPV 12.0 H fl (7.4-10.4) Immature Gran % (Auto) 0.5 % (0-0.5) Neut % (Auto) 63.4 % (45.5-73.1) Lymph % (Auto) 22.5 % (18.3-44.2) [place] % (Auto) 11.8 H % (2.6-8.5) Eos % (Auto) 1.3 % (0-4.4) Baso % (Auto) 0.5 % (0.2-1.2) Lymph # (Auto) 2.16 K/mm3 (0.9-3.2) [place] # (Auto) 1.1 H K/mm3 (0.1-0.6) Eos # (Auto) 0.1 K/mm3 (0-0.3) Baso # (Auto) 0.1 K/mm3 (0.0-0.1) Abs Immat Gran (auto) 0.05 H K/mm3 (0.00-0.031) Absolute Neuts (auto) 6.1 K/mm3 (1.3-6.7) Absolute Nucleated RBC 0.0 K/mm3 (0.0-0.012) Nucleated RBC % 0.0 % (0.0-0.2) RPR Pending Hep Bs Antigen Pending Rubella IgG Antibody Pending Blood Type O Positive Antibody Screen Pending Patient hx anesthesia problems: none Family hx anesthesia problems: none Results Review: All pre-operative results and documents have been reviewed as part of the pre-operative evaluation. [facility] Past Medical History Medical History Dizziness Family History Family History Other Unknown family medical history Social History Social History Smoking status: Never smoker Substance use: never Spiritual care concerns: No Anes - Eval Final PreProcedure Day of Procedure 06/17/23 20:22 Patient weight: normal Heart: regular rate and rhythm Lungs: clear to auscultation Neurological: alert and oriented ASA classification: III Anesthetic plan: proceed Anesthesia type and monitoring: regional epidural and standard monitoring Results Review: All pre-operative results and documents have been reviewed as part of the pre-operative evaluation. Informed Consent: The patient's anesthetic plan and its attendant risks and benefits were discussed with the patient/family/POA. Questions were solicited and answers provided to the satisfaction of the patient/family/POA.
[2023-06-17 20:52] LABS: Rubella IgG Antibody 63.6 IU/ML
[2023-06-17 22:00] LABS: Hepatitis B Surface Antigen Negative (Negative)
[2023-06-18] VITALS (15 sets, daily range): BP systolic 87–114; BP diastolic 51–78; PULSE 62–75; RESP 16; TEMP 36.3–36.4
[2023-06-18] MEDS: ZOLPIDEM TARTRATE (*CRX) 5 MG TABLET PO ×2 (00:21→22:58)
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
--- NOTE | 2023-06-18 07:50 | LDADM ---
This patient, Tish Avalos, was admitted to Labor/Delivery/Recovery 105 on 06/17/23 at 18:42. Plans for labor, pain management and were discussed with patient. Patient/family oriented to hospital policies and general routines including ID bracelet, bed and alarms, visiting hours, pain management, procedures, bathroom and other care routines, personal items, smoking policy, room service/diet and guest tray routines, infant security routines, and visiting hours. Patient/Family are encouraged to report perceived risks to care and to ask questions if they do not understand what they are told or what they should do. See OBIX for further documentation.
[2023-06-18] MEDS: miSOPROStol 25 MCG TABLET PO ×3 (08:41→18:34)
[2023-06-18] MEDS: CYCLOBENZAPRINE HCL 5 MG TABLET PO (09:03)
[2023-06-18] MEDS: LACTATED RINGERS 1,000 ML 125 ML IV CONT ×4 (11:40→23:59)
[2023-06-18] MEDS: busPIRone HCL 10 MG TABLET PO (13:15)
[2023-06-18] MEDS: SERTRALINE HCL 50 MG TABLET PO (13:15)
[2023-06-18] MEDS: PANTOPRAZOLE 40 MG TABLET PO (13:15)
[2023-06-18 15:21] LABS: Rapid Plasma Reagin Non-Reactive (NonReactive)
[2023-06-18] MEDS: OXYTOCIN 30 UNITS/NS 500 ML 30 UNITS/500 ML BAG 6 UNITS IV CONT (22:57)
[2023-06-18] MEDS: LACTATED RINGERS 500 ML 999 ML IV CONT (23:35)
[2023-06-19] VITALS (283 sets, daily range): BP systolic 92–195; BP diastolic 51–159; PULSE 50–216; RESP 16–20; TEMP 36.3–37.3; O2SAT 79–100
--- NOTE | 2023-06-19 02:28 | WPDANESEPN ---
Anes - Epidural Procedure Note Date/Time: 06/19/23 02:28 Consent: I have discussed with the patient/family/POA, the placement of an epidural catheter and the use of epidural narcotic/local anesthetic for labor analgesia and/or postoperative pain management, including associated potential risks, benefits, complications and side effects. I have discussed alternative methods of labor analgesia and/or postoperative pain management. The patient/family/POA, understand(s) and wish(es) to proceed with epidural narcotic/local anesthetic for labor analgesia and/or postoperative pain management. Time-Out: A pre-procedural Time-Out was completed immediately before starting the procedure and confirmed: Patient Identification, Site, Procedure, Patient Position and the Availability of Requisite Equipment. Clinical Indications: Labor pain Epidural Insertion Note Patient position: sitting Skin prep: chlorhexidine and sterile drape Needle: 18g Tuohy-Schliff Catheter: 20g Unstyleted Technique: Loss of resistance. Level of insertion: L3/4 Catheter skin claire (cm): 9 Length in epidural space (cm): 4 Skin anesthesia: lidocaine 1% Test dose: 1.5% Lidocaine with 1:[id number] Epi, negative for subarachnoid Inj and negative for intravascular Inj Time of test dose: 02:18 Observations: tolerated well Complications: none
[2023-06-19] MEDS: LACTATED RINGERS 1,000 ML 125 ML IV CONT ×2 (07:58→13:57)
--- NOTE | 2023-06-19 08:07 | PM.OBPNVD ---
OB - PN: Subj Subjective Date/time seen: 06/19/23 08:07 comfortable wit epidural SROM overnight SVE /- thick brown meconium fluid OB - PN: Obj Data Labs 06/17/23 19:06 Labs: Laboratory Results - last 24 hr 06/17/23 19:07 RPR Non-reactive OB - PN A/P Time Spent With Patient Time: Total time spent is greater than 50% in coordination of care (as documented) at patient's floor/unit and/or counseling patient:
[2023-06-19] MEDS: ACETAMINOPHEN 500 MG TABLET 1000 MG PO (10:10)
[2023-06-19] MEDS: ONDANSETRON INJ 4 MG/2 ML VIAL IV PUSH ×2 (10:21→21:00)
[2023-06-19] MEDS: AMPICILLIN 2 GM/NS 100 ML 2 GM/100 ML BAG IVPB (16:55)
[2023-06-19] MEDS: miSOPROStol 200 MCG TABLET 1000 MCG RECTAL (17:22)
[2023-06-19] MEDS: OXYTOCIN 30 UNITS/NS 500 ML 30 UNITS/500 ML BAG 125 UNITS IV CONT (17:30)
--- NOTE | 2023-06-19 17:39 | PM.OBPRVD ---
OB - Delivery Note Procedure Delivery date: 06/19/23 Procedure: Events: Polyhydramnios Intrapartal Events: Ineffetive Pushing/Maternal Exhaustion and Other (meconium) Induction method: AROM, Per Misoprostol Protocol, Per Pitocin Protocol and Per Cervidil Protocol Delivery monitor: External FHT and Internal Uterine Route of delivery: Episiotomy description: None Laceration Description: Perineal - 1st Degree and Other (right labial) Delivery repair: vicryl Specimen: Yes Quantitative Blood Loss (ml): 575 Anesthesia type: Epidural Disposition: Floor Complications: baby to warmer for evaluation, peds at delivery. uterus boggy even after fundal massage, pitocin , and cytotec, manual exploration revealed a few clots, uterine atony treated with JAMIA and now hemostasis has been obtained continue to monitor Baby Weeks of gestation at delivery: 40
[2023-06-19] MEDS: ACETAMINOPHEN 325 MG TABLET 650 MG PO (18:33)
[2023-06-19] MEDS: PANTOPRAZOLE 40 MG TABLET PO (19:18)
[2023-06-19] MEDS: SERTRALINE HCL 50 MG TABLET PO (19:20)
[2023-06-19] MEDS: busPIRone HCL 10 MG TABLET PO (19:20)
[2023-06-19] MEDS: KETOROLAC 30 MG/ML VIAL (*BKC) IV PUSH (21:01)
--- NOTE | 2023-06-19 21:50 | PC.NURSE ---
Patient transferred to post room #283 per wheelchair from labor and delivery. Oriented to unit, room, information board, rooming in, admission packet and security measures. Patient verbalizes understanding.
--- NOTE | 2023-06-19 22:23 | PM.OBPNVD ---
OB - PN: Subj Subjective Date/time seen: 06/19/23 22:23 At bs, suction turned off and JAMIA balloon deflated, 120cc out. after 30 minutes, bleeding stabilized and fundus firm at Umbilicus. continue to monitor OB - PN: Obj Data Labs 06/17/23 19:06 OB - PN A/P Time Spent With Patient Time: Total time spent is greater than 50% in coordination of care (as documented) at patient's floor/unit and/or counseling patient:
[2023-06-19] MEDS: HYDROcodone/acetaminophen (*CRX) 5-325 MG TABLET 1 TAB PO (22:28)
[2023-06-20] MEDS: BENZOCAINE 20% AER SPR (*SP) 56 GM CAN 1 SPRAY (02:40)
[2023-06-20] MEDS: DIBUCAINE 1% OINTMENT 30 GM TUBE 1 APPLIC TOPICAL (02:40)
[2023-06-20] MEDS: WITCH HAZEL 40 PADS 1 PAD TOPICAL (02:41)
[2023-06-20 04:50] VITALS: BP 84/51; PULSE 78; RESP 18; TEMP 36.2
[2023-06-20 05:16] LABS: Hematocrit 30.5 % (37.0-47.0); Hemoglobin 10.1 g/dL (12.0-15.0)
--- NOTE | 2023-06-20 07:44 | PM.OBPNVD ---
OB - PN: Subj Subjective Date/time seen: 06/20/23 07:44 Interval history: pp day 1 doing well norco for pain pp hemorrhage, h/h stable OB - PN: Obj Data Labs 06/20/23 04:33 Labs: Laboratory Results - last 24 hr 06/20/23 04:33 Hgb 10.1 L Hct 30.5 L OB - PN A/P Plan day: 1 Time Spent With Patient Time: Total time spent is greater than 50% in coordination of care (as documented) at patient's floor/unit and/or counseling patient: Review of Systems Review of Systems: All systems reviewed & are unremarkable except as noted in HPI and below Exam Const: General: cooperative Chest: Chest palpation & inspection: normal inspection of the chest Resp: Effort & Inspection: normal respiratory effort Cardio: Rate: regular rate Rhythm: regular rhythm GI: Other: soft Skin: General skin exam: normal color Neuro: General: patient oriented x3 Extrem: Right lower extremity: edema (trace) Left lower extremity: edema (trace) Psych: Appearance: grossly normal
[2023-06-20 07:55] VITALS: BP 95/53; PULSE 84; RESP 16; TEMP 37.4; O2SAT 98
--- NOTE | 2023-06-20 08:19 | WPDANLDPN2 ---
Anes-Prog Note L&D Date/Time: 06/20/23 08:19 Comfortable throughout: labor (patient c/o 1 sided block.) and delivery (patient c/o 1 sided block) Neuraxial method: epidural Epidural/Spinal procedure site: clean & non-tender Neuro status: Neuro function grossly intact. Cardiovascular status: other (hypotension) Respiratory status: normal Airway patency: baseline Mental status: baseline Post-Op hydration status: normal Vital Signs: Last Vital Signs Temp 36.2 C L 06/20/23 04:50 Pulse 78 06/20/23 04:50 Resp 18 06/20/23 04:50 BP 84/51 L 06/20/23 04:50 Pulse Ox 98 06/19/23 21:35 O2 Del Method Room Air 06/17/23 08:30 Pain score (VAS): 3/10 I/O: Intake & Output 06/19/23 06/20/23 06/20/23 23:59 07:59 15:59 Intake Total 1000 Output Total 525 Balance 475 Patient feedback: Patient satisfied with anesthetic care.
[2023-06-20] MEDS: HYDROcodone/acetaminophen (*CRX) 5-325 MG TABLET 1 TAB PO ×4 (09:19→23:08)
[2023-06-20] MEDS: IBUPROFEN 600 MG TABLET PO ×3 (09:20→23:09)
[2023-06-20] MEDS: MULTIVIT/MIN/PREN/FOL AC/IRON TABLET 1 TAB PO (09:21)
[2023-06-20] MEDS: busPIRone HCL 10 MG TABLET PO (09:21)
[2023-06-20] MEDS: PANTOPRAZOLE 40 MG TABLET PO (09:21)
[2023-06-20] MEDS: SERTRALINE HCL 50 MG TABLET PO (09:22)
--- NOTE | 2023-06-20 09:43 | PC.NURSE ---
[id number] Mother is using two phones at the time RN brings infant to her, As RN introduces name and asking if it is okay to enter patient says [facility] . Once patient is ready for communication RN re-introduces and checks infant bands, then consults with patient to assess needs related to . Mother has right breast exposed and the nipple is excoriated. There is a nipple shield on her table that she requests to be cleaned. Pt states that using the nipple shield is painful so, RN advises caution of using the nipple shield. Patient states she is in pain and breakfast tray has arrived. Infant was placed [id number] and patient states it hurts her uterus to have on her so was repositioned. is awake without feeding cues. Mother is encouraged to eat breakfast and RN will see about pain medications with the Primary RN. Resources provided for inpatient with name written on the white board. Mother voiced understanding of information and will call if there is a request for assistance. Reported to the primary RN. [phone] - Mother call for a request for assistance. is [id number] with no feeding cues. Mother is encouraged to eat her breakfast and RN is bringing pain medication as well. Mother encouraged to adjust her infants position to help teach confidence in her abilities to care for her infant. Mother voiced calling for assistance with . Reported to Primary RN going in with pain medication.
--- NOTE | 2023-06-20 11:20 | PC.NURSE ---
[id number] Consulted with patient to assess needs related to . Reviewed working with infant, supporting breast and how to protect the nipples with an optimal deep latch, good positioning, and good hand washing. Reviewed positioning and alignment, supporting breast, off-centered (asymmetrical latch) and leading with the chin with big, open, wide gape. Infant attempted at the left breast using cross cradle. was able to effectively latch on a rare occasion suckle optimally but unable to maintain latch and nipple was misshaped after detach. Mother's breast has excoriations bilaterally and she mentioned using the nipple shield was painful with past . Bilateral breast edema. Education and demonstration was given to mother of how to reverse pressuring. Hand expression was demonstration to protect the milk supply. Discussed with mother the risks and benefits with the nipple shield tool. Assisted mother with latching infant to the right breast using the football positioning several times. On a rare occasion infant appeared to be effectively latched for a few suckles, then would let the breast go or suck on the tip on the nipple. When the latch was ineffective was removed from the breast not needing any intervention to detach. When infant was effectively suckling education given to mother of how to visualize effective sucking. Infant was able to maintain latch without discomfort to mother. Nipple care reviewed with optimal latch, good positioning and using clean hands when feeding her and touching her breast. Suggestion was made to initiate pumping to protect the milk supply. Mother is unsure if she wants to pump at this time. Mother requests some time to work on latching her independently and may initiate pumping later. Resources used to facilitate learning were used from the tool, mom and baby guide. Infant is unable to maintain latch at this time. Mother was encouraged to continue to practice with her infant as the infant demonstrates efforts and a big, open, wide gape. Mother voiced understanding of the education shared, to call for assistance if the infant does not latch or if there is discomfort with . Reported to the primary RN.
[2023-06-20 12:11] VITALS: BP 95/54; PULSE 69; RESP 16; TEMP 36.8; O2SAT 99
--- NOTE | 2023-06-20 14:03 | PC.NURSE ---
1254 PT here to evaluate and instruct on the use of a walker.
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
[2023-06-20 20:16] VITALS: BP 100/60; PULSE 71; RESP 18; TEMP 36.4; O2SAT 97
[2023-06-21] MEDS: HYDROcodone/acetaminophen (*CRX) 5-325 MG TABLET 1 TAB PO ×3 (04:13→18:56)
--- NOTE | 2023-06-21 05:14 | PM.OBPNVD ---
OB - PN: Subj Subjective Date/time seen: 06/21/23 05:14 Interval history: pp day 2 doing well norco for pain pp hemorrhage, h/h stable plan d/c home today OB - PN: Obj Data Labs 06/20/23 04:33 Labs: Laboratory Results - last 24 hr 06/20/23 04:33 Hgb 10.1 L Hct 30.5 L OB - PN A/P Plan day: 2 Plan: routine care and discharge home Time Spent With Patient Time: Total time spent is greater than 50% in coordination of care (as documented) at patient's floor/unit and/or counseling patient: Review of Systems Review of Systems: All systems reviewed & are unremarkable except as noted in HPI and below Exam Const: General: cooperative and healthy appearing Chest: Chest palpation & inspection: normal inspection of the chest Resp: Effort & Inspection: normal respiratory effort Cardio: Rate: regular rate Rhythm: regular rhythm GI: Other: soft Skin: General skin exam: normal color Neuro: General: patient oriented x3 Extrem: Right lower extremity: edema Left lower extremity: edema Psych: Appearance: grossly normal
--- NOTE | 2023-06-21 05:17 | P.DS_ITS ---
DS: Admitting Diagnosis Discharge Date 06/21/23 Admitting Diagnosis IOL, polyhydramnios DS: Discharge Diagnosis Discharge Diagnosis (1) Vaginal delivery: Code(s): O80 - Encounter for full-term uncomplicated delivery Status: Acute OB - DS: Summary OB Procedures : None OB Procedures Intrapartum: Spontaneous Vag Delivery OB Procedures: : None Time Spent with Patient Time attestation: Total time spent providing and/or coordinating discharge services: DS: Data Data Completed and Pending Pending studies at discharge: Pending at discharge 06/19/23 17:10 Surgical [PTH] Routine Labs on day of discharge: Labs from last 24 hours 06/20/23 04:33 Hgb 10.1 L Hct 30.5 L Discharge Plan Discharge Attending physician on discharge: Jb Jackson Discharging Clinician: Brittnee Sarmiento Patient Disposition: Home, Self-Care Activity: pelvic rest Diet: regular Patient Instructions: Antibiotic Form Stand Alone Forms: General Discharge Information Follow-up/Referrals: Brittnee Sarmiento, CNM [Certified Nurse Collision Mechanic] - Discharge Medications: New hydrocodone-acetaminophen 5-325 mg Tablet 1 tablet PO Q4H PRN (Reason: Pain Rated 4-6) Qty: 15 0RF Continued buspirone 10 mg tablet 10 mg PO DAILY sertraline 25 mg tablet 50 mg PO DAILY Rx Instructions: Takes 2 tabs to total 50 mg PNV cmb#95-ferrous fumarate-FA [] 28 mg iron- 800 mcg Tablet 1 tablet PO DAILY pantoprazole 40 mg tablet,delayed release (DR/EC) 40 mg PO BID Qty: 60 3RF Date of admission: 06/17/23 18:42 Primary Care Provider: PHYSICIAN,WOOD TILE INSTALLATION HELPER Admitting Provider: Jb Jackson Attending physician on admission: Brittnee Sarmiento Condition: Stable
[2023-06-21 09:30] VITALS: BP 93/67; PULSE 68; RESP 16; TEMP 36.5; O2SAT 100
--- NOTE | 2023-06-21 09:45 | PC.NURSE ---
Patient requested morning medications be held and given later.
[2023-06-21] MEDS: IBUPROFEN 600 MG TABLET PO ×2 (09:56→18:53)
--- NOTE | 2023-06-21 12:31 | WPDANLDPN2 ---
Anes-Prog Note L&D Date/Time: 06/21/23 12:31 Neuraxial method: epidural Epidural/Spinal procedure site: clean & non-tender Neuro status: Neuro function grossly intact. pt complains of left leg weakness and numbness Cardiovascular status: normal Respiratory status: normal Airway patency: baseline Mental status: baseline Post-Op hydration status: normal Vital Signs: Last Vital Signs Temp 97.7 F 06/21/23 09:30 Pulse 68 06/21/23 09:30 Resp 16 06/21/23 09:30 BP 93/67 L 06/21/23 09:30 Pulse Ox 100 06/21/23 09:30 O2 Del Method Room Air 06/20/23 20:16 Pain score (VAS): 5 Post-procedural complaints: other (left leg weakness) Patient feedback: informed by RN pt having c/o left leg weakness & refusing to go home. chart reviewed. upon entering room pt noted to have bilateral legs raised in air above pelvis. pt reports weakness & numbness to lower leg, indicating with had the lateral aspect.it is unclear how long the pt was in stirrups and if this could be contributing to her feeling of lateral numbness.during visit pt stood at side of bed, appearing to be steady & required no assistance or support. while no weakness was observed pt states she was using her right leg to support herself. she does state that her leg is feeling better today than yesterday but concerned over her ability to care for her child since she is alone. pt was receiving PT earlier in the but states that was for sciatic pain and was different than what she is feeling now. she does have a walker in the room. RN reports pt is ambulating to restroom independently and has not used the walker. no further intervention required at this time.
--- NOTE | 2023-06-21 13:30 | PC.NURSE ---
Addendum entered by Katherine Mendez RN 06/21/23 15:11: See anesthesia note. Original Note: Patient would like to speak to anesthesia or physician about leg numbness and back pain. Anesthesia consulted with patient and does not have concerns at this time. Patient is ambulatory and caring for self and infant.
[2023-06-21] MEDS: busPIRone HCL 10 MG TABLET PO (13:58)
[2023-06-21] MEDS: MULTIVIT/MIN/PREN/FOL AC/IRON TABLET 1 TAB PO (13:58)
[2023-06-21] MEDS: SERTRALINE HCL 50 MG TABLET PO (13:58)
[2023-06-21] MEDS: PANTOPRAZOLE 40 MG TABLET PO (13:58)
[2023-06-21] MEDS: ACETAMINOPHEN 325 MG TABLET 650 MG PO (14:30)
--- NOTE | 2023-06-21 14:35 | PC.NURSE ---
Patient now ready to be discharged, requesting to leave between 4-5 PM but insists on driving herself as she has no support person to pick her up. I contacted Brittnee Sarmiento and patient is allowed to go home, preferably not drive, and not to take pain medication if she chooses to drive.
--- NOTE | 2023-06-21 18:30 | PC.NURSE ---
Patient requests pain medication before discharge. Patient is driving herself home, Brittnee Sarmiento CNM is aware. Patient knows that it is strongly recommended that she not drive while taking narcotics. Patient has been taking Gantt for 2 days and is not dizzy, sleepy or disoriented after taking it. She feels safe to drive.
--- NOTE | 2023-06-21 18:50 | PC.NURSE ---
Patient received instruction on viewing the discharge video Mother & Baby Care, The First Two Weeks . Patient was given the opportunity and encouraged to ask questions. Patient verbalized understanding of information shared and has been given the mother/baby guide for home reference.
[2023-06-23 11:29] VITALS: BP 103/58; PULSE 72; RESP 18; TEMP 36.8; O2SAT 100
== END 2023-06-21 19:12 | disposition home or self-care (01) | DRG 560 ==
LOC: ANHLDR 06-19 14:05 → ANHOB2 06-21 05:17 → ANHLDR 06-24 07:28 → ANHOB2 06-24 07:28
PROVIDERS: Advanced Practice Midwife; Admitting Provider Obstetrics & Gynecology; Visit Provider Obstetrics & Gynecology
DX: O40.3XX0 Polyhydramnios, third trimester, not applicable or unspecified (principal); Z37.0 Single live birth; O70.0 First degree perineal laceration during delivery; O77.0 Labor and delivery complicated by meconium in amniotic fluid; Z3A.40 40 weeks gestation of pregnancy
CPT/HCPCS: 36415; 85014; 85018; 85025; 86592; 86762; 86850; 86900; 86901; 87340; 88307; 97161; A9270; J0290; J1885; J2405; J2590; J2795; J7120

== ENCOUNTER 2023-09-16 14:15 | Outpatient (RCR) | payer OTHER, SELFPAY ==
--- NOTE | 2023-06-25 15:51 | OPREHPOC ---
Outpatient Therapy Plan of Care This is a Multidisciplinary Plan of Care that may contain components documented by all disciplines (PT, OT, and ST.) PT Problem 1 PT Problem #1 Knowledge Deficit PT Goal 1 Goal 1. Patient will perform independent HEP Target Visit 9 PT Problem 2 PT Problem #2 Pain PT Goal 1 Goal 1. Patient able to do all care of her baby with back pain no higher than 4/10 Target Visit 9 PT Problem 3 PT Problem #3 Impaired Strength PT Goal 1 Goal 1. Improve bilateral LE to 4+/5 in all planes to allow patient to care for her child Target Visit 9
--- NOTE | 2023-06-25 15:52 | PTOPEVAL1 ---
Assessment and note entered by Teri Kearns DPT Evaluation Information Assessment Status Evaluation Subjective Information Pt is 6 days post . Was released from the hospital on 06/21/23 and while she was in there was using a walker at times. Pt is reporting a lot of sharp pain in her mid back and weakness. Highest back pain 10/10 and lowest 7/10. Significant difficulty changing diapers, picking up her baby, standing for a prolonged period of time. Reports hip and knee pain/weakness. Difficulty lifting her left leg like to get into bed. Feels weak walking around. Returns to [facility] in 4 weeks. Pt reports she had a vaginal delivery with significant tearing. Pt is pumping currently. Patient goal: strengthen my back in order to lift and carry baby. History of scoliosis. Reported Pain Level Pain Score 8: Self Report Assessment PT Clinical Summary The patient is presenting to skilled therapy 6 days with significant back pain and LE weakness. She presents with increased muscle tone/ spasm and decreased LE strength L>R which are contributing to her pain and difficulty with activities including caring for her baby. She will highly benefit from skilled therapy to address these impairments in order to safely return to prior level of function. Plan of Care Interventions Electrical Stimulation,Gait Training,Hot Pack/Cold Pack,Manual Therapy,Neuro Re-education,Patient/ Caregiver Education,Therapeutic Activities, Therapeutic Exercise PT Services Indicated Yes Treatment Frequency and 2 times a week for 8 visits Duration These treatments will address the objective and functional deficits as defined above. The patient will be advanced safely and appropriately in order for the patient to progress towards his/her prior level of function. Additional exercises will be introduced and as well as a comprehensive home exercise program upon discharge, if needed, ?to ensure carryover of functional gains achieved in the clinic. This treatment plan has been reviewed and agreement upon by the patient.
--- NOTE | 2023-06-26 13:48 | PCPTNOTE ---
Therapist called referring physicians office to discuss very recent post- status, gave approval to do gentle core stabilization as appropriate.
--- NOTE | 2023-07-23 14:07 | OPREHPOC ---
Outpatient Therapy Plan of Care This is a Multidisciplinary Plan of Care that may contain components documented by all disciplines (PT, OT, and ST.) PT Problem 1 PT Problem #1 Knowledge Deficit PT Goal 1 Goal 1. Patient will perform independent HEP Target Visit 17 Progress Partially Met PT Problem 2 PT Problem #2 Pain PT Goal 1 Goal 1. Patient able to do all care of her baby with back pain no higher than 4/10 Target Visit 17 Progress Partially Met PT Problem 3 PT Problem #3 Impaired Strength PT Goal 1 Goal 1. Improve bilateral LE to 4+/5 in all planes to allow patient to care for her child Target Visit 17 Progress Partially Met
--- NOTE | 2023-07-23 14:07 | PTOPPROG ---
Assessment and note entered by Teri Kearns DPT Evaluation Information Assessment Status Progress Subjective Information Pt reports highest pain 10/10 recently and lowest pain 7/10. Pt is 5 weeks tomorrow. Pt reports improvements with therapy and that her leg is stronger, less difficulty getting in/out of bed but still has to assist it. Still having difficulty due to pain and weakness with most activities including changing her baby's diaper. Is able to do more activities than when she first started therapy but still has pain with it. Assessment PT Clinical Summary The patient has made good progress in therapy so far and demonstrates good LE strength improvements . She reports less difficulty using her L LE to get in and out of bed. She continues to report high pain levels with activities like caring for her baby and demonstrates increased muscle tone and a diastasis recti. She will benefit from further therapy to address her strength and pain in order to allow for full function at home including all tasks to care for her . Plan of Care Interventions Electrical Stimulation,Gait Training,Hot Pack/Cold Pack,Manual Therapy,Neuro Re-education,Patient/ Caregiver Education,Therapeutic Activities, Therapeutic Exercise PT Services Indicated Yes Treatment Frequency and 2 times a week for 8 visits Duration These treatments will address the objective and functional deficits as defined above. The patient will be advanced safely and appropriately in order for the patient to progress towards his/her prior level of function. Additional exercises will be introduced and as well as a comprehensive home exercise program upon discharge, if needed, ?to ensure carryover of functional gains achieved in the clinic. This treatment plan has been reviewed and agreement upon by the patient.
--- NOTE | 2023-08-19 15:30 | OPREHPOC ---
Outpatient Therapy Plan of Care This is a Multidisciplinary Plan of Care that may contain components documented by all disciplines (PT, OT, and ST.) PT Problem 1 PT Problem #1 Knowledge Deficit PT Goal 1 Goal 1. Patient will perform independent HEP Target Visit 25 Progress Partially Met PT Problem 2 PT Problem #2 Pain PT Goal 1 Goal 1. Patient able to do all care of her baby with back pain no higher than 4/10 Target Visit 25 Progress Partially Met Comment improved to 7/10 at lowest, not as high as often PT Problem 3 PT Problem #3 Impaired Strength PT Goal 1 Goal 1. Improve bilateral LE to 4+/5 in all planes to allow patient to care for her child New goal 08/19/23: 2. Decrease diastasis to 2 finger width at umbilicus to improve core stabilization with lifting activities Target Visit 25 Progress Partially Met
--- NOTE | 2023-08-19 15:30 | PTOPPROG ---
Assessment and note entered by Trei Kearns DPT Evaluation Information Assessment Status Progress Subjective Information Highest pain in the last week 07/08 and lowest . Feels improvements in her ability to stand longer (like to wash bottles) and hold her son longer. Notes that her pain is not as high as often throughout the day. Still has more difficulty and mobility in moving her left LE but is improved since delivery. Assessment PT Clinical Summary The patient is continuing to make progress in therapy. She continues to report high pain levels but that it is not as high as often. She also reports improvements in her ability to perform tasks including washing bottles, holding her son, and standing for prolonged periods. She demonstrates improved LE strength. Due to her progress but continued pain and weakness she will benefit from further therapy to allow her to return to full function. Plan of Care Interventions Electrical Stimulation,Gait Training,Hot Pack/Cold Pack,Manual Therapy,Neuro Re-education,Patient/ Caregiver Education,Therapeutic Activities, Therapeutic Exercise PT Services Indicated Yes Treatment Frequency and 2 times a week for 8 visits Duration These treatments will address the objective and functional deficits as defined above. The patient will be advanced safely and appropriately in order for the patient to progress towards his/her prior level of function. Additional exercises will be introduced and as well as a comprehensive home exercise program upon discharge, if needed, ?to ensure carryover of functional gains achieved in the clinic. This treatment plan has been reviewed and agreement upon by the patient.
--- NOTE | 2023-09-16 15:22 | OPREHPOC ---
Outpatient Therapy Plan of Care This is a Multidisciplinary Plan of Care that may contain components documented by all disciplines (PT, OT, and ST.) PT Problem 1 PT Problem #1 Knowledge Deficit PT Goal 1 Goal 1. Patient will perform independent HEP Target Visit 27 Progress Partially Met PT Problem 2 PT Problem #2 Pain PT Goal 1 Goal 1. Patient able to do all care of her baby with back pain no higher than 4/10 Target Visit 27 Progress Partially Met Comment improved to 7/10 at lowest, not as high as often PT Problem 3 PT Problem #3 Impaired Strength PT Goal 1 Goal 1. Improve bilateral LE to 4+/5 in all planes to allow patient to care for her child New goal 08/19/23: 2. Decrease diastasis to 2 finger width at umbilicus to improve core stabilization with lifting activities Target Visit 27 Progress Partially Met Comment 1. only abduction 4/5 still
--- NOTE | 2023-09-16 15:22 | PTOPPROG ---
Assessment and note entered by Teri Kearns DPT Evaluation Information Assessment Status Progress Subjective Information Pt reports highest pain in last week 07/08 and lowest 05/08. Has reported increased pain due to moving and has been very stressed and having to lift a lot. States her leg strength continues to feel better and is noticing it is easier to move it around. Assessment PT Clinical Summary Pt is almost 3 months post- and reports progress in therapy overall. She continues to have high levels of back pain which has been recently exacerbated by having to move. She does demonstrate improved LE muscle strength and reports improvements with her ability to move her L LE. Due to her progress but continued pain, she will benefit from further therapy to allow for full function and care of her child. Plan of Care Interventions Electrical Stimulation,Gait Training,Hot Pack/Cold Pack,Manual Therapy,Neuro Re-education,Patient/ Caregiver Education,Therapeutic Activities, Therapeutic Exercise PT Services Indicated Yes Treatment Frequency and 1 time a week for 4 visits Duration These treatments will address the objective and functional deficits as defined above. The patient will be advanced safely and appropriately in order for the patient to progress towards his/her prior level of function. Additional exercises will be introduced and as well as a comprehensive home exercise program upon discharge, if needed, ?to ensure carryover of functional gains achieved in the clinic. This treatment plan has been reviewed and agreement upon by the patient.
== END 2023-09-23 09:24 | disposition home or self-care (01) ==
LOC: ANHPT 14:15
PROVIDERS: PCP Physician Assistant; Visit Provider Advanced Practice Midwife
DX: Z39.2 Encounter for routine postpartum follow-up (principal)
CPT/HCPCS: 97110; 97112; 97140; 97161; 97530

== ENCOUNTER 2023-12-11 15:15 | Outpatient (RCR) | payer OTHER, SELFPAY ==
--- NOTE | 2023-10-21 15:20 | OPREHPOC ---
Outpatient Therapy Plan of Care This is a Multidisciplinary Plan of Care that may contain components documented by all disciplines (PT, OT, and ST.) PT Problem 1 PT Problem #1 Knowledge Deficit PT Goal 1 Goal 1. Patient will perform independent HEP Target Visit 31 Progress Partially Met PT Problem 2 PT Problem #2 Pain PT Goal 1 Goal 1. Patient able to do all care of her baby with back pain no higher than 4/10 Target Visit 31 Progress Partially Met Comment improved to 6/10 at lowest, not as high as often PT Problem 3 PT Problem #3 Impaired Strength PT Goal 1 Goal 1. Improve bilateral LE to 4+/5 in all planes to allow patient to care for her child New goal 08/19/23: 2. Decrease diastasis to 2 finger width at umbilicus to improve core stabilization with lifting activities Target Visit 27 Progress Met
--- NOTE | 2023-10-21 15:21 | PTOPPROG ---
Assessment and note entered by Teri Kearns DPT Evaluation Information Assessment Status Progress Subjective Information Pt reports highest back pain in last week 07/08 and lowest 03/08. Does report she is noticing her leg feels stronger and more mobile, she is able to more comfortably put it in different positions. Still has some difficulty getting up from a low couch, and reports difficulty due to her back with bending over to care for her son or prepare bottles. Assessment PT Clinical Summary The patient has continued to make good progress in therapy and demonstrates improved hip strength and closure of diastasis recti. She continues to have high back pain at times which is impacting her ability to care for her child and reports difficulty getting up still from low surfaces. She will benefit from continued therapy to further address pain and dysfunction in order to return to prior level. Pt has also been educated to follow up with PCP regarding continued back issues. Plan of Care Interventions Electrical Stimulation,Gait Training,Hot Pack/Cold Pack,Manual Therapy,Neuro Re-education,Patient/ Caregiver Education,Therapeutic Activities, Therapeutic Exercise PT Services Indicated Yes Treatment Frequency and 1 visit a week x 4 visits Duration These treatments will address the objective and functional deficits as defined above. The patient will be advanced safely and appropriately in order for the patient to progress towards his/her prior level of function. Additional exercises will be introduced and as well as a comprehensive home exercise program upon discharge, if needed, ?to ensure carryover of functional gains achieved in the clinic. This treatment plan has been reviewed and agreement upon by the patient.
--- NOTE | 2023-11-13 11:53 | PCPTNOTE ---
Patient called to cancel appointment due to illness.
--- NOTE | 2023-11-26 14:56 | OPREHPOC ---
Outpatient Therapy Plan of Care This is a Multidisciplinary Plan of Care that may contain components documented by all disciplines (PT, OT, and ST.) PT Problem 1 PT Problem #1 Knowledge Deficit PT Goal 1 Goal 1. Patient will perform independent HEP Target Visit 31 Progress Met PT Problem 2 PT Problem #2 Pain PT Goal 1 Goal 1. Patient able to do all care of her baby with back pain no higher than 4/10 Target Visit 35 Progress Partially Met Comment improved to 6/10 at lowest, not as high as often PT Problem 3 PT Problem #3 Impaired Strength PT Goal 1 Goal 1. Improve bilateral LE to 4+/5 in all planes to allow patient to care for her child New goal 08/19/23: 2. Decrease diastasis to 2 finger width at umbilicus to improve core stabilization with lifting activities Target Visit 27 Progress Met
--- NOTE | 2023-11-26 14:57 | PTOPPROG ---
Assessment and note entered by Teri Kearns DPT Evaluation Information Assessment Status Progress Subjective Information Pt reports highest back pain in last week 07/08 and lowest 03/08. Thinks she is noticing more strength in her back when she is holding her son. Thinks her L LE feels 85% normal compared to her right. Assessment PT Clinical Summary The patient has continued to make some progress in therapy. She continues to report high pain levels , but that it is not getting as high as often. She demonstrates minor diastasis closure and improved speed on the 2 minute walk test. She will continue to benefit from therapy to further address soft tissue restrictions and reduce pain to allow her to fully care for her baby. Plan of Care Interventions Electrical Stimulation,Gait Training,Hot Pack/Cold Pack,Manual Therapy,Neuro Re-education,Patient/ Caregiver Education,Therapeutic Activities, Therapeutic Exercise PT Services Indicated Yes Treatment Frequency and 1 time a week for 4 visits Duration These treatments will address the objective and functional deficits as defined above. The patient will be advanced safely and appropriately in order for the patient to progress towards his/her prior level of function. Additional exercises will be introduced and as well as a comprehensive home exercise program upon discharge, if needed, ?to ensure carryover of functional gains achieved in the clinic. This treatment plan has been reviewed and agreement upon by the patient.
--- NOTE | 2023-12-19 12:50 | PCPTNOTE ---
Pt. did not show for her appointment. Pt. called 17 minutes after her scheduled appointment time to cancel her appointment.
--- NOTE | 2024-01-01 10:33 | PCPTNOTE ---
This treatment is being continued on visit number [id number]. Please see documentation on both accounts to view progress. Completed interventions, outcomes, and problems have been marked as Inactive to facilitate the copying of the Care plan routine for recurring accounts.
== END 2023-12-29 11:19 | disposition home or self-care (01) ==
LOC: ANHPT 15:15
PROVIDERS: PCP Physician Assistant; Visit Provider Advanced Practice Midwife
DX: Z39.2 Encounter for routine postpartum follow-up (principal)
CPT/HCPCS: 97110; 97112; 97140; 97530; 99199

== ENCOUNTER 2024-01-09 12:00 | Outpatient (RCR) | payer OTHER, SELFPAY ==
--- NOTE | 2024-01-01 10:34 | PCPTNOTE ---
The treatment documented on this account is a continuation of the treatment documented on visit number [id number]. Please see documentation on both accounts to view progress. The Plan of Care has been transitioned and updated within the new V#. I have addressed and agree with the discipline specific Problems, Interventions, and Goals for the current certification period. Completed interventions, outcomes, and problems have been marked as Inactive to facilitate the copying of the Care plan routine for recurring accounts.
--- NOTE | 2024-01-01 10:35 | OPREHPOC ---
Outpatient Therapy Plan of Care This is a Multidisciplinary Plan of Care that may contain components documented by all disciplines (PT, OT, and ST.) PT Problem 1 PT Problem #1 Knowledge Deficit PT Goal 1 Goal 1. Patient will perform independent HEP Target Visit 31 Progress Met PT Problem 2 PT Problem #2 Pain PT Goal 1 Goal 1. Patient able to do all care of her baby with back pain no higher than 4/10 Target Visit 35 Progress Partially Met Comment improved to 6/10 at lowest, not as high as often PT Problem 3 PT Problem #3 Impaired Strength PT Goal 1 Goal 1. Improve bilateral LE to 4+/5 in all planes to allow patient to care for her child New goal 08/19/23: 2. Decrease diastasis to 2 finger width at umbilicus to improve core stabilization with lifting activities Target Visit 27 Progress Met Comment 1. only abduction 4/5 still
--- NOTE | 2024-01-09 12:47 | OPREHPOC ---
Outpatient Therapy Plan of Care This is a Multidisciplinary Plan of Care that may contain components documented by all disciplines (PT, OT, and ST.) PT Problem 1 PT Problem #1 Knowledge Deficit PT Goal 1 Goal 1. Patient will perform independent HEP Target Visit 31 Progress Met PT Problem 2 PT Problem #2 Pain PT Goal 1 Goal 1. Patient able to do all care of her baby with back pain no higher than 4/10 Target Visit 35 Progress Partially Met Comment improved to 4/10 at lowest, not as high as often PT Problem 3 PT Problem #3 Impaired Strength PT Goal 1 Goal 1. Improve bilateral LE to 4+/5 in all planes to allow patient to care for her child New goal 08/19/23: 2. Decrease diastasis to 2 finger width at umbilicus to improve core stabilization with lifting activities Target Visit 27 Progress Met
--- NOTE | 2024-01-09 12:47 | PTOPDC ---
Assessment and note entered by Teri Kearns DPT Evaluation Information Assessment Status Discharge Subjective Information Current back pain 5/10. Highest pain in last week 10/10 and lowest 4/10. Pt reports she is able to hold her son a little longer. Feels continued difficulty with stairs especially if she needs to carry her son. Reported Pain Level Pain Score 5: Self Report Assessment PT Clinical Summary The patient has reached a plateau in progress in therapy and has reached the end of current insurance authorization. She continues to report pain with lifting and carrying tasks but overall has improved since starting therapy. She will be discharged this visit with education to continue HEP and follow up with MD and/or PT as needed. Plan of Care PT Services Indicated No
== END 2024-01-09 13:19 | disposition home or self-care (01) ==
LOC: ANHPT 12:00
PROVIDERS: PCP Physician Assistant; Visit Provider Advanced Practice Midwife
DX: Z39.2 Encounter for routine postpartum follow-up (principal)
CPT/HCPCS: 97112; 97140; 97530; 99199